=== PATIENT | female | born 1970 | race Caucasian/White ===

== ENCOUNTER → 2017-12-08 13:58 | Outpatient (CLI) | payer OTHER, SELFPAY ==
--- NOTE | 2017-12-08 14:01 | RAD_ITS ---
STUDY: X-RAY - CERVICAL SPINE REASON FOR EXAM: Female, 47 years old. Postop TECHNIQUE: 2 view(s) of the cervical spine were obtained. COMPARISON: X-rays of the cervical spine on June 02, 2017 FINDINGS: Normal anterior atlantoaxial articulation. Normal odontoid process. There is straightening of the normal cervical lordosis. Normal vertebral bodies. The patient is status post disc implants at C5-6 and C6-7. The implants are in proper position. Spinal canal is preserved. The soft tissue structures are unremarkable. RAD/Cerv Spine 2 or 3 Views IMPRESSION: Status post disc implant at C5-6 and C6-7, uncomplicated. Stable since the prior study Electronically Signed: Matty Rowley MD, FACR at 14:39 EST , Service support ,
== END ==
PROVIDERS: Visit Provider Orthopaedic Surgery
DX: M54.2 Cervicalgia (principal)
CPT/HCPCS: 72040